=== PATIENT | female | born 1950 | race Caucasian/White ===

== ENCOUNTER 2016-07-27 12:31 | Emergency (ER) | payer MEDICARE, OTHER | END 2016-07-27 13:41 | disposition home or self-care (01) | LOC: ER 12:31 | DX: M54.16 Radiculopathy, lumbar region (principal); I11.0 Hypertensive heart disease with heart failure; I50.9 Heart failure, unspecified; Z90.49 Acquired absence of other specified parts of digestive tract; Z79.899 Other long term (current) drug therapy | CPT/HCPCS: 96372; J1100 ==